=== PATIENT | female | born 1960 | race Hispanic/Latino ===

== ENCOUNTER 2023-11-14 11:30 | Emergency (ER) | payer BC ==
[~2023-11-14] VITALS: Ht 154.9 cm; Wt 75.3 kg
[2023-11-14 11:44] VITALS: BP 129/56; PULSE 87; RESP 18
[2023-11-14] MEDS ORDERED: HYDROCODONE/ACETAMINOPHEN 5/325 MG TAB PO ONE (12:30)
[2023-11-14] MEDS ORDERED: LIDOCAINE HCL 1% 20 ML VIAL INJ SCH (12:30)
[2023-11-14] MEDS ORDERED: CLINDAMYCIN 150 MG CAP PO ONE (12:30)
[2023-11-14 13:33] LABS: BASOPHILS # (AUTO) 0.02 K/uL (0.00-0.20); BASOPHILS % (AUTO) 0.2 % (0.0-5.0); EOSINOPHILS # (AUTO) 0.01 K/uL (0.00-0.70); EOSINOPHILS % (AUTO) 0.1 % (0.0-8.0); HEMATOCRIT 42.4 % (36-48); IMMATURE GRANULOCYTE ABSOLUTE 0.05 K/uL (0-1); LYMPHOCYTES # (AUTO) 1.6 K/uL (1.0-4.8); LYMPHOCYTES % (AUTO) 13.7 % (21.0-51.0); MEAN CORPUSCULAR HEMOGLOBIN 28.3 pg (27.0-33.0); MEAN CORPUSCULAR VOLUME 85.7 fL (79-99); MONOCYTES # (AUTO) 0.7 K/uL (0.1-1.0); MONOCYTES % (AUTO) 5.8 % (3.0-13.0); NEUTROPHILS # (AUTO) 9.2 K/uL (1.8-7.7); NEUTROPHILS % (AUTO) 79.8 % (40.0-77.0); PLATELET COUNT (AUTO) 185 K/uL (130-400); RED BLOOD CELL COUNT(AUTO) 4.95 MIL/uL (4.00-5.50); RED CELL DISTRIBUTION WIDTH 13.8 % (11.0-15.5); WHITE BLOOD COUNT (AUTO) 11.5 K/uL (4.8-10.8)
[2023-11-14 14:08] LABS: CREATININE 0.7 mg/dL (0.5-1.5); POTASSIUM 3.8 mmol/L (3.5-5.1)
[2023-11-14 14:14] LABS: ALBUMIN 3.9 g/dL (3.5-5.0); BILIRUBIN,TOTAL 0.7 mg/dL (0.2-1.0); TOTAL PROTEIN, SERUM 8.7 g/dL (6.0-8.3)
[2023-11-14] MEDS ORDERED: MUPI22O TP (16:02)
[2023-11-14] MEDS ORDERED: CLIN-141 PO (16:02)
[2023-11-14] MEDS ORDERED: IBUP-2077 PO (16:02)
[2023-11-18] MEDS ORDERED: SERT100T PO (23:37)
[2023-11-18] MEDS ORDERED: DOXY100T2 PO (23:37)
[2023-11-18] MEDS ORDERED: TRAM50TA4 PO (23:37)
[2023-11-18] MEDS ORDERED: PROM25TA7 PO (23:37)
[2023-11-18] MEDS ORDERED: LOSA-417 PO (23:37)
[2023-11-18] MEDS ORDERED: IBUP-2071 PO (23:37)
[2023-11-18] MEDS ORDERED: CLIN-141 PO (23:37)
[2023-11-18] MEDS ORDERED: OMEP40CA21 PO (23:37)
== END 2023-11-14 16:18 | disposition home or self-care (01) ==
LOC: EDH 11:30
DX: L02.415 Cutaneous abscess of right lower limb (principal); N76.89 Other specified inflammation of vagina and vulva; I10 Essential (primary) hypertension; E11.9 Type 2 diabetes mellitus without complications; Z90.49 Acquired absence of other specified parts of digestive tract; Z98.890 Other specified postprocedural states
CPT/HCPCS: 10060; 36415; 80053; 83605; 85025; 87040; 87070; 87077; 87186